=== PATIENT | female | born 1940 | race Two or more races ===

== ENCOUNTER → 2016-08-23 | Outpatient (CLI) | payer MEDICARE, OTHER ==
[~2016-08-23] MED LIST: NEXIUM PO; SIMVASTATIN40 MG
--- NOTE | ~2016-08-23 | EKG ---
PATIENT: WILBUR GUO UNIT #: [id number] Ventricular Rate: 63 BPM Atrial Rate: 63 BPM P-R Interval: 274 ms QRS Duration: 94 ms Q-T Interval: 386 ms QTC Calculation(Bezet): 395 ms P Rowlett: 54 degrees Calculated R Rowlett: -16 degrees Calculated T Rowlett: 11 degrees Diagnosis Line: Sinus rhythm with 1st degree A-V block Diagnosis Line: Otherwise normal ECG Diagnosis Line: When compared with ECG of 08-JAN-2016 14:43, Diagnosis Line: No significant change was found Diagnosis Line: Confirmed by BENJAMIN ALLEN MD ([id number]) on 08/24/2016 Diagnosis Line: 6:01:21 PM INTERPRETING MD: ALEJANDRO CASTREJON
== END | disposition home or self-care (01) ==
LOC: CLAB 12:19
DX: R07.9 Chest pain, unspecified (principal)
CPT/HCPCS: 36415; 84484; 93005